=== PATIENT | male | born 1950 | race Caucasian/White ===

== ENCOUNTER 2016-03-27 05:57 | Day surgery (SDC) | payer MEDICARE ==
[~2016-03-27] VITALS: Ht 170.2 cm; Wt 86.4 kg
[2016-03-27] MEDS ORDERED: ZANTAC150 MG PO (06:45)
[2016-03-27] MEDS ORDERED: GLUCOPHAGE500 MG PO (06:46)
[2016-03-27] MEDS ORDERED: TORADOL10 MG PO (06:47)
[2016-03-27] MEDS ORDERED: MOBIC7.5 MG PO (06:47)
[2016-03-27] MEDS ORDERED: LIPITOR20 MG PO (06:47)
[2016-03-27] MEDS ORDERED: NEURONTIN600 MG PO (06:48)
[2016-03-27] MEDS ORDERED: COZAAR100 MG PO (06:48)
[2016-03-27] MEDS ORDERED: CENTRUM COMPLE1 EACH PO (06:48)
[2016-03-27 06:49] VITALS: BP 139/81; Ht 170.2 cm; Wt 86.4 kg
[2016-03-27 06:53] LABS: HEMATOCRIT 46.7 % (42.0-54.0); HEMOGLOBIN 16.5 g/dL (13.5-17.5); MCHC 35.3 g/dL (31.0-37.0); MCV 93.4 fL (80.0-100.0); MEAN PLATELET VOLUME 10.3 fL (7.4-10.4); RDW 12.8 % (11.5-14.5); WBC 8.8 10x3/uL (4.8-10.8)
[2016-03-27 06:59] LABS: ANION GAP 14.5 mmol/L (8-16); CARBON DIOXIDE 26.2 mmol/L (21.0-32.0); CREATININE - SERUM 1.1 mg/dL (0.6-1.3); POTASSIUM - SERUM 4.7 mmol/L (3.5-5.1)
--- NOTE | 2016-03-27 09:57 | NUR ---
0910-RECEIVED PT FROM GI AWAKE AND ALERT. DENIES ANY N/V PASSING GAS FULL IQUID TRAY GIVEN WILL CONTINUE TO MONITOR 0940-PT TOLERATED TRAY WELL DENIES ANY NEEDS OR CONCERNS FAMILY AT BEDSIDE WILL CONTINUE TO MONITOR
--- NOTE | 2016-03-27 10:29 | NUR ---
1010-PT DOING WELL, IV DICONTINUED WITH CATHETER INTACT. PT TO BATHROOM AND VOIDED, DENIES ANY NEEDS OR CONCERNS AT THIS TIME 1025-DISCHARGE INSTRUCTIONS GIVEN AND WENT OVER WITH PATIENT. PT STATES UNDERSTANDING AND DENIES ANY NEEDS OR CONCERNS AT THIS TIME. PT ESCORTED OUT VIA WHEELCHAIR IN STABLE CONDITION AND DRIVEN HOME BY
--- NOTE | 2016-04-07 10:18 | OP ---
PATIENT NAME: RUBINA DERAS MEDICAL RECORD: [id number] :50 LOCATION:D.OPS ADMISSION DATE: SURGEON: KENNEDY LEVI MD DATE OF OPERATION: 03/27/2016 PREOPERATIVE DIAGNOSIS: Screening colonoscopy. SURGEON: Kennedy Levi MD ANESTHESIA: TIVA per Dr. Gomes. REFERRING PHYSICIAN: Valentín Vega MD PREOPERATIVE NOTE: Mr. Deras is a 65-year-old healthy white male brought to the hospital today for screening colonoscopy, referred by Dr. Vega. Under TIVA, in lateral decubitus position, a digital rectal exam was performed. This was normal, no evidence of perianal sepsis or inflammation. No hemorrhoidal thrombosis. No masses. Prostate was minimally enlarged and without nodules. The Olympus colonoscope was introduced and advanced to the cecum with no difficulty and then slowly withdrawn. Withdrawal time was in excess of 10 minutes. No mucosal lesions were seen. The patient did have mild sigmoid diverticulosis, but no other lesions. The scope was retroflexed in the rectum and the anal canal examined from above and no other lesions seen. The scope was withdrawn and the patient was subsequently awakened and taken back to the outpatient department. He will be allowed to go home later today and resume his activities and diet and home medications. He will follow up with me just p.r.n. and I have recommended that he consider having another screening colonoscopy in about 5 years. TRANSINT:[id number] Voice Confirmation ID: [id number] DOCUMENT ID: [id number] KENNEDY LEVI MD at 1018 CC: VALENTÍN VEGA MD [id number] DICTATION DATE: 04/04/16 1618 FACILITY REHAB DIRECTOR: 04/05/16 0000 [facility] 03/27/16 [facility] [address] [place] [address]
== END 2016-03-27 10:25 | disposition home or self-care (01) ==
LOC: D.OPS 05:57
PROVIDERS: Anesthesiology
DX: Z12.11 Encounter for screening for malignant neoplasm of colon (principal); K57.30 Diverticulosis of large intestine without perforation or abscess without bleeding; N40.0 Benign prostatic hyperplasia without lower urinary tract symptoms

== ENCOUNTER 2018-03-02 18:05 | Emergency (ER) | payer MEDICARE ==
[~2018-03-02] VITALS: Ht 170.2 cm; Wt 86.4 kg
[~2018-03-02 18:05] MED LIST: CENTRUM COMPLE1 EACH PO; COZAAR100 MG PO; GLUCOPHAGE500 MG PO; LIPITOR20 MG PO; MOBIC7.5 MG PO; NEURONTIN600 MG PO; TORADOL10 MG PO; ZANTAC150 MG PO
[2018-03-02 18:08] VITALS: Ht 170.2 cm; Wt 86.4 kg
[2018-03-02 18:47] LABS: BASOPHILS 0.1 % (0-2); EOSINOPHILS 0.1 % (0-7); HEMATOCRIT 44.2 % (42.0-54.0); HEMOGLOBIN 15.7 g/dL (13.5-17.5); IMMATURE GRANULOCYTES 0.5 % (0-5); LYMPHOCYTES 8.9 % (15-50); MCH 33.4 pg (26.0-34.0); MCHC 35.5 g/dL (31.0-37.0); MEAN PLATELET VOLUME 10.5 fL (7.4-10.4); MONOCYTES 4.7 % (2-11); NEUTROPHILS 85.7 % (40-80); PLATELET COUNT 222 10x3/uL (130-400); RDW 13.2 % (11.5-14.5); WBC 16.2 10x3/uL (4.8-10.8)
[2018-03-02 19:04] LABS: APPEARANCE CLEAR (CLEAR); COLOR YELLOW (YELLOW); SPECIFIC GRAVITY 1.015 (1.005-1.020)
[2018-03-02 19:05] LABS: BILIRUBIN NEGATIVE (NEGATIVE); GLUCOSE 100 mg/dL (NEGATIVE); KETONE SMALL mg/dL (NEGATIVE); NITRITE NEGATIVE (NEGATIVE); PROTEIN NEGATIVE (NEGATIVE); RED CELLS - URINE 0-5 /hpf (0-5); UROBILINOGEN NORMAL (NORMAL); WHITE CELLS - URINE 0-5 /hpf (0-5)
[2018-03-02 19:06] LABS: ALBUMIN 3.9 g/dL (3.4-5.0); ANION GAP 15.6 mmol/L (8-16); BILIRUBIN - TOTAL 0.92 mg/dL (0.2-1.3); CALCIUM 8.6 mg/dL (8.5-10.1); CARBON DIOXIDE 27.5 mmol/L (21.0-32.0); CREATININE - SERUM 1.4 mg/dL (0.6-1.3); POTASSIUM - SERUM 4.1 mmol/L (3.5-5.1); PROTEIN - SERUM 7.9 g/dL (6.4-8.2)
[2018-03-02] MEDS ORDERED: FLOMAX0.4 MG PO (21:05)
[2018-03-02] MEDS ORDERED: TORADOL10 MG PO (21:05)
[2018-03-02] MEDS ORDERED: COMPAZINE5 MG PO (21:05)
[2018-03-02] MEDS ORDERED: CIPRO500 MG PO (21:05)
[2018-03-02 21:28] VITALS: BP 164/97
== END 2018-03-02 21:29 | disposition home or self-care (01) ==
LOC: D.ER 18:05
PROVIDERS: Emergency Medicine
DX: N12 Tubulo-interstitial nephritis, not specified as acute or chronic (principal); N13.30 Unspecified hydronephrosis; N20.0 Calculus of kidney; E11.9 Type 2 diabetes mellitus without complications; I10 Essential (primary) hypertension

== ENCOUNTER → 2019-10-27 08:12 | Outpatient (CLI) | payer MEDICARE ==
[2018-03-02 18:08] VITALS: BMI 29.8
[~2019-10-27 08:12] MED LIST changes: +CIPRO500 MG PO; +COMPAZINE5 MG PO; +FLOMAX0.4 MG PO
== END | disposition home or self-care (01) ==
LOC: D.HCCARDIO 08:12
PROVIDERS: ATTEND Internal Medicine Cardiovascular Disease
DX: R94.31 Abnormal electrocardiogram [ECG] [EKG] (principal)

== ENCOUNTER 2019-11-17 10:35 | Day surgery (SDC) | payer MEDICARE ==
[~2019-11-17] VITALS: Ht 170.2 cm; Wt 86.0 kg
--- NOTE | ~2019-11-17 | HEMODYNAMI ---
PATIENT:RUBINA SANDERS MEDICAL RECORD: [id number] : 50 LOCATION:DROMEL ADMISSION DATE: 11/17/19 Generatedon:11/17/201913:46 Patient name: RUBINA SANDERS Patient #: [id number] SSN: [id number] : 1950 Date of study: 11/17/2019 Page: Of Hemodynamic Procedure Report Patient Data Patient Demographics Procedure consent was obtained First Name: RUBINA Gender: Male Last Name: MARILYN : 1950 Patient #: [id number] Age: 69 year(s) Race: SSN: [id number] Additional ID: [id number] Contact details [address]: [address] [place] [address] State: [place] City: [place] Zip code: [address] Past Medical History Allergies: No known allergies Admission Admission Data Admission Date: 11/17/2019 Admission Time: 10:35 Lab Results Lab Result Date: 11/17/2019 Lab Result Time: 0:00 Biochemistry Name Units Result Min Max BUN mg/dl 20 --(----)*- 7 18 Creatinine mg/dl 1.3 --(---*)-- 0.6 1.3 eGFR ml/min 58 *-(----)-- 90 120 NONAFRICAN CBC Name Units Result Min Max Hematocrit % 43 --(*---)-- 42 54 Hemoglobin g/dl 15.4 --(-*--)-- 13.5 17.5 Procedure Procedure Types Cath Procedure Diagnostic Procedure C [facility] w/Coronaries Sedation Charges Moderate Sedation up to 15 minutes Procedure Description Procedure Date Procedure Date: 11/17/2019 Procedure Start Time: 13:28 Procedure End Time: 13:45 Procedure Staff Name Function Kody Fletcher MD Performing Physician Inga Veloz RT Monitor Margaret Harris RT Scrub Camron Forrest RN Nurse Brit Dawson RN Nurse Indication Abnormal ECG Procedure Data Cath Procedure Fluoroscopy Diagnostic fluoroscopy Total fluoroscopy Time: 5.2 time: 5.2 min min Diagnostic fluoroscopy Total fluoroscopy dose: 781 dose: 781 mGy mGy Contrast Material Contrast Material Type Amount (ml) Isovue 300 67 Entry Location Entry Primary Successful Side Size Upsize Upsize Entry Closure Min ccessful Closure Location (Fr) 1 (Fr) 2 (Fr) Remarks Device Remarks Radial Right 6 Fr Mechanical artery Short Compression Estimated blood loss: 5 ml Diagnostic catheters Device Type Used For End Catheter Placement DIAGNOSTIC Artie 110cm Procedure 5Fr catheter ([id number]) DIAGNOSTIC Dowagiac 110cm 5 Procedure Fr catheter ([id number]) Procedure Complications No complications Procedure Medications Medication Administration Route Dosage 0.9% NaCl I.V. 100 ml/hr Oxygen etCO2 Nasal cannula 2 l/min Heparin Flush Bag added to field 2 bags (1000units/500ml NS) Lidocaine 2% added to field 20 Radial Cocktail added to field 1 syringe (Verapamil 2mg/Nitro 400mcg/Heparin 1500units) Versed I.V. 2 mg Fentanyl I.V. 50 mcg Fentanyl I.V. 50 mcg Versed I.V. 1 mg Radial Cocktail I.A. 1 syringe (Verapamil 2mg/Nitro 400mcg/Heparin 1500units) Hemodynamics Rest HGB: 15.4 (g/dl) Heart Rate: 65 (bpm) Pressure Samples Time Site Value (mmHg) Purpose Heart Use Rate(bpm) 13:32 LV 120/-20,-2 Snapshot 82 Gradients Valve Time Site Site Mean SEP/DFP Peak To Heart Use 1 2 (mmHg) (sec/min) Peak Rate (mmHg) (bpm) Aortic 13:33 LV AO 81 Snapshots Pre Cath Intra NCS Post Cath Vital Signs Time Heart Resp SPO2 etCO2 NIBP (mmHg) Rhythm Pain Sedation Rate (ipm) (%) (mmHg) Status Level (bpm) 13:13:01 62 19 100 38.5 155/83(135) NSR 0 (11) 10(A) , No pain 13:17:23 62 13 100 36.9 157/84(128) NSR 0 (11) 10(A) , No pain 13:21:39 75 13 98 41.5 147/86(113) NSR 0 (11) 10(A) , No pain 13:25:49 77 11 98 42.2 139/86(119) NSR 0 (11) 10(A) , No pain 13:30:03 81 12 98 22.6 128/83(120) NSR 0 (11) 10(A) , No pain 13:34:13 89 10 95 38.4 107/80(99) NSR 0 (11) 9(A) , No pain 13:39:04 83 10 96 21.1 120/80(104) NSR 0 (11) 9(A) , No pain 13:43:11 84 12 98 37.7 132/88(106) NSR 0 (11) 10(A) , No pain Medications Time Medication Route Dose Verified Delivered Reason Notes Effectiveness by by 13:17:20 0.9% NaCl I.V. 100 Camron Camron Per ml/hr Adriane Forrest physician RN RN 13:17:30 Oxygen etCO2 2 l/min Camron Camron for low 02 Nasal Lorigan Lorigan sats cannula RN RN 13:17:41 Heparin Flush added 2 bags Camron Camron used for Bag to Lorphu Forrest procedure (1000units/500ml field GENAO RN NS) 13:17:51 Lidocaine 2% added 20ml Camron Camron for local to vial Lorigan Lorigan anesthetic field GENAO RN 13:18:01 Radial Cocktail added 1 Camron Camron used for (Verapamil to syringe Lorigan Lorigan procedure 2mg/Nitro field GENAO RN 400mcg/Heparin 1500units) 13:23:46 Versed I.V. 2 mg Camron Camron for sedation Adriane Forrest RN RN 13:23:56 Fentanyl I.V. 50 mcg Camron Camron for sedation Adriane Forrest RN RN 13:28:19 Fentanyl I.V. 50 mcg Camron Camron for sedation Adriane Forrest RN RN 13:28:29 Versed I.V. 1 mg Camron Camron for sedation Adriane Forrest RN RN 13:29:53 Radial Cocktail I.A. 1 Camron Kody for (Verapamil syringe Adriane Fletcher MD vasodilation 2mg/Nitro RN 400mcg/Heparin 1500units) Procedure Log Time Note 12:47:12 Informed consent obtained and on chart 12:52:55 Indication : Abnormal ECG 12:53:03 Procedure Status Elective Heart Cath (OP). 12:53:06 Time tracking: Regular hours (M-F 7:00 - 5:00) 12:53:29 Patient allergic to No known allergies 12:55:13 Margaret Steven RT(R) sent for patient. Start room use. 12:55:27 Plan of Care:Hemodynamics will remain stable., Cardiac rhythm will remain stable., Comfort level will be maintained., Respiratory function will remain adequate., Patient/ family verbilizes understanding of procedure., Procedure tolerated without complication., Recovers from procedure without complications.. 12:57:04 Stress Test: yes; abnormal inferior 12::36 Lab Result : BUN 20 mg/dl ::36 Lab Result : Creatinine 1.3 mg/dl 12::36 Lab Result : eGFR NONAFRICAN 58 ml/min 12::36 Lab Result : Hemoglobin 15.4 g/dl 12::36 Lab Result : Hematocrit 43 % 12:57:43 Lab results completed and on chart. 13:00:39 Patient received from Pre/Post Procedure Room to CCL 1 Alert and oriented. Tansferred to table in Supine position. 13:00:41 Warm blankets applied, and chad hugger turned on for patient comfort. 13:00:42 Correct patient and procedure confirmed by team. 13:00:43 ECG and BP/O2 sat monitors applied to patient. 13:11:49 Vital chart was started 13:11:50 Baseline sample Acquired. 13:11:55 Rhythm: sinus rhythm 13:11:58 Full Disclosure recording started 13:11:59 - 13:12:06 H&P Date Dictated: 11/17/2019 H&P Addendum completed by physician on day of procedure. (MUST COMPLETE FOR ALL OUTPATIENTS), New H&P dictated by physician.. 13:12:08 Pre-procedure instructions explained to patient. 13:12:09 Pre-op teaching completed and patient verbalized understanding. 13:12:11 Family in patients room. 13:12:14 Patient NPO since Midnight. 13:12:22 Is the patient allergic to Iodine/contrast media? No. 13:12:26 Was the patient premedicated? Yes 13:12:29 Is patient on blood thinner?No 13:12:32 Patient diabetic? Yes. 13:12:35 If diabetic: On Metformin? Yes 13:12:41 If on Metformin: Last Dose? 11/15/2019 13:12:45 ----Pre-sedation anethsthesia assessment.---- 13:12:49 Previous problem with sedation/anesthesia? No ? 13:12:52 Snore? Yes 13:12:55 Sleep apnea? No 13:12:58 Deviated septum? No 13:13:01 Opens mouth fully? Yes 13:13:04 Sticks out tongue? Yes 13:13:08 Airway obstruction? No ? 13:13:12 Dentures? No ? 13:13:21 Pre procedure: right dorsailis pedis pulse 2+ Normal; easily identifiable; not easily obliterated 13:13:33 IV patent on arrival in left wrist with 0.9% NaCl at KVO. 13:13:40 Right Radial & Right Groin area was prepped with chlora-prep and draped in sterile fashion 13:13:43 Alarms reviewed by R. N. 13:13:43 Sharps counted by scrub and verified by R.N. 13:13:53 Use device set Radial Dx or PCI 13:13:55 ACIST Syringe (69942) opened to sterile field. 13:13:56 Medline Cath Pack ([id number]) opened to sterile field. 13:13:57 Bag Decanter (2002S) opened to sterile field. 13:13:57 ACIST Hand Control (78360) opened to sterile field. 13:13:58 ACIST Manifold (54000) opened to sterile field. 13:13:59 MBrace Wrist Support ([id number]) opened to sterile field. 13:14:00 NEEDLE Cook 21G 4cm Radial (Q03386) opened to sterile field. 13:14:02 EMERALD Guide Wire (630-214) opened to sterile field. 13:14:02 SHEATH 6FR RAIN (3183544) opened to sterile field. 13:17:20 0.9% NaCl 100 ml/hr I.V. was administered by Camron Forrest RN; Per physician; Verbal order read back and verified. 13:17:30 Oxygen 2 l/min etCO2 Nasal cannula was administered by Camron Forrest RN; for low 02 sats; Verbal order read back and verified. 13:17:41 Heparin Flush Bag (1000units/500ml NS) 2 bags added to field was administered by Camron Forrest RN; used for procedure; Verbal order read back and verified. 13:17:51 Lidocaine 2% 20ml vial added to field was administered by Camron Forrest RN; for local anesthetic; Verbal order read back and verified. 13:18:01 Radial Cocktail (Verapamil 2mg/Nitro 400mcg/Heparin 1500units) 1 syring e added to field was administered by Camron Forrest RN; used for procedure; Verbal order read back and verified. 13:20:00 Risk of Mortality: 0.1 13:20:04 Risk of blood transfusion: 0.4 13:20:10 Risk of CURT: 0.4 13:20:17 Physician arrived 13:20:18 --------ALL STOP TIME OUT------ 13:20:19 Final Timeout: patient, procedure, and site verified with staff and physician. All members of the team are in agreement. 13:20:22 Right Radial & Right Groin site verified by team. 13:20:27 Fire Safety Assessment: A--An alcohol-based skin anteseptic being used preoperatively., C--Open oxygen or nitrous oxide is being used., D--An ESU, laser, or fiber-optic light is being used. 13:20:31 Physical assessment completed. ASA score P 2 - A patient with mild systemic disease as per Kody Fletcher MD. 13:20:38 3a) 45-59 Moderately reduced kidney function. 13:20:43 Maximum allowable contrast dose (3.7 X eGFR X 0.75)161 ml. 13:20:49 Sedation plan: IV Moderate Sedation Medication:Versed, Fentanyl 13:22:34 Zero performed for pressure channel P1 13:23:46 Versed 2 mg I.V. was administered by Camron Forrest RN; for sedation; Verbal order read back and verified. 13:23:56 Fentanyl 50 mcg I.V. was administered by Camron Forrest RN; for sedation; Verbal order read back and verified. 13:27:32 Procedure started. 13:28:14 Local anesthetic to right radial artery with Lidocaine 2% by Kody Fletcher MD.INITIAL ACCESS ONLY 13:28:19 Fentanyl 50 mcg I.V. was administered by Camron Forrest RN; for sedation; Verbal order read back and verified. 13:28:29 Versed 1 mg I.V. was administered by Camron Forrest RN; for sedation; Verbal order read back and verified. 13:29:18 A 6 Fr Short sheath was inserted into the Right Radial artery 13:29:53 Radial Cocktail (Verapamil 2mg/Nitro 400mcg/Heparin 1500units) 1 syring e I.A. was administered by Kody Fletcher MD; for vasodilation; Verbal order read back and verified. 13:29:55 A DIAGNOSTIC Artie 110cm 5Fr catheter ([id number]) was advanced over the wire and used for Procedure. 13:31:11 Injector settings: Ml/sec: 5, Volume: 15, 13:32:15 LV gram done using MENDEZ 13:32:52 EF : 55 % 13:33:08 LV hemodynamics recorded. 13:33:38 RCA angiography performed. 13:33:49 Injector settings: Ml/sec: 3, Volume: 6, 13:34:32 Catheter exchanged over wire. 13:35:34 A DIAGNOSTIC Dowagiac 110cm 5 Fr catheter (931948) was advanced over the wire and used for Procedure. 13:37:27 LCA angiography performed. 13:37:37 Injector settings: Ml/sec: 3, Volume: 6, 13:41:07 Catheter removed. 13:41:14 ZEPHYR REGULAR TR BAND (291847) opened to sterile field. 13:41:55 Sheath removed intact; hemostasis achieved with Mechanical Compression to the Right Radial artery. 13:41:58 Procedure ended.(Physican Out) 13:42:05 Contrast amount:Isovue 300 67ml. 13:42:11 Fluoroscopy time 05.20 minutes. 13:42:19 Fluoroscopy dose: 781 mGy 13:42:19 Flurop Dose total: 781 13:42:32 Dose Area Product 98977 mGy/cm. 13:42:35 Maximum allowable dose exceeded? No. 13:42:37 Sharps counted by scrub and verified by R.N. 13:42:41 Todd band inflated with 10cc of air. 13:42:51 Post right radial artery:stable 13:42:56 Post-procedure physical assessment completed. ASA score P 2 - A patient with mild systemic disease as per Kody Fletcher MD. 13:43:01 Post procedure rhythm: unchanged. 13:43:05 Estimated blood loss: 5 ml 13:43:07 Post procedure instruction explained to patient.Patient verbalizes understanding. 13:43:08 Patient needs reinforcement of post procedure teaching. 13:43:50 Procedure type changed to Cath procedure, Diagnostic procedure, LHC, C w/Coronaries, Sedation Charges, Moderate Sedation up to 15 minutes 13:43:52 Procedure and supply charges have been captured, reviewed, submitted an d are correct. 13:44:35 Procedure Complication : No complications 13:44:39 Vital chart was stopped 13:44:41 [facility] Findings: MVD- CABG consult 13:45:08 See physician's report for complete and final results. 13:45:12 Report given to Pre/Post Procedure Room. 13:45:18 Patient transfered to Pre/Post Procedure Room with Stretcher. 13:45:22 Procedure ended. 13:45:22 Full Disclosure recording stopped 13:45:25 End room use (Document Last) Device Usage Item Name Manufacture Quantity Catalog Hospital Part Current Minima l Lot# / Number Charge Number Stock Stock Serial# Code ACIST Acist 1 93487 136868 076034 767234 20 Syringe Medical (17639) Systems Inc Medline Medline 1 [id number] 777039 47650 098091 5 Cath Pack ([id number]) Bag Microtek 1 622753 62034 645203 5 Decanter Medical Inc. () ACIST Hand Acist 1 19054 996348 956000 467745 5 Control Medical (82173) Systems Inc ACIST Acist 1 48820 497748 471045 586498 5 Manifold Medical (17498) Systems Inc MBrace Advanced 1 140-0250-00 644812 93764 614071 5 Wrist Vascular Support Dynamics ([id number]) NEEDLE Cook Cook Medical 1 H29956 020141 626493 127074 5 21G 4cm Radial (B08471) EMERALD Cardinal 1 502-455 812016 913284 122031 5 Guide Wire [facility] (721-810) SHEATH 6FR Cardinal 1 [id number] 633091 3557630 837413 [address] [facility] (4394182) DIAGNOSTIC Terumo 1 40-5023 999645 351748 270432 5 Artie 110cm 5Fr catheter (300540) DIAGNOSTIC Terumo 1 40-2761 267737 727872 609866 5 Dowagiac 110cm 5 Fr catheter (252104) ZEPHYR Cardinal 1 608710 030793 0170631 290573 5 REGULAR TR Health BAND (561005) Signature Audit [place] Stage Time Signature Unsigned Intra-Procedure 11/17/2019 Inga 1:45:48 PM Magdiel RT(R) (CV) Intra-Procedure 11/17/2019 Camron 1:46:17 PM Adriane GENAO Intra-Procedure 11/17/2019 Kody Fletcher MD 1:46:57 PM [facility] [address] [place] [id number]
[2019-11-17] MEDS ORDERED: GLUCOTROL 5 MG T5 MG PO (10:48)
[2019-11-17] MEDS ORDERED: NORVASC10 MG PO (10:49)
[2019-11-17] MEDS ORDERED: HYDROCHLOROTH12.5 M1 PO (10:49)
[2019-11-17] MEDS ORDERED: OMEPRAZOLE40 MG PO (10:50)
[2019-11-17] MEDS ORDERED: GLUCOPHAGE1000 MG PO (10:53)
[2019-11-17] MEDS ORDERED: BAYER CHEWABLE81 MG PO (10:55)
[2019-11-17 11:08] VITALS: BP 175/102; Ht 170.2 cm; Wt 86.0 kg
[2019-11-17 11:16] LABS: BASOPHILS 0.2 % (0-2); EOSINOPHILS 1.3 % (0-7); HEMOGLOBIN 15.4 g/dL (13.5-17.5); IMMATURE GRANULOCYTES 0.2 % (0-5); LYMPHOCYTES 24.2 % (15-50); MCH 33.3 pg (26.0-34.0); MCHC 35.8 g/dL (31.0-37.0); MCV 92.9 fL (80.0-100.0); MEAN PLATELET VOLUME 10.3 fL (7.4-10.4); MONOCYTES 7.2 % (2-11); NEUTROPHILS 66.9 % (40-80); PLATELET COUNT 261 10x3/uL (130-400); RBC 4.63 10x6/uL (4.20-6.10); RDW 12.9 % (11.5-14.5); WBC 9.9 10x3/uL (4.8-10.8)
[2019-11-17 11:31] LABS: ANION GAP 11.7 mmol/L (8-16); CALCIUM 9.2 mg/dL (8.5-10.1); CARBON DIOXIDE 28.1 mmol/L (21.0-32.0); CHOL - HDL RATIO 5.2 ratio (2.3-4.9); CREATININE - SERUM 1.3 mg/dL (0.6-1.3); LDL-HDL RATIO 3.5 ratio (1.5-3.5); POTASSIUM - SERUM 3.8 mmol/L (3.5-5.1)
--- NOTE | 2019-11-17 13:50 | NUR ---
PT REC'D TO ROOM 4 VIA STRETCHER FROM NATURAL RESOURCE TECHNICIAN. MONITORS ESTAB. AT BS. SEE COMPARISON SHOPPER. ALARMS ON AND C/L IN REACH.
--- NOTE | 2019-11-17 14:05 | NUR ---
R WRIST SITE C/D/I, NO S/S BLEEDING OR HEMATOMA. R ARM/HAND WARM WITH PALP PULSES AND BRISK CAP REFILL. VSS. PT DENIES PAIN OR NEEDS. VSS. ALARMS ON AND C/L IN REACH.
--- NOTE | 2019-11-17 14:15 | NUR ---
R WRIST SITE C/D/I, NO S/S BLEEDING OR HEMATOMA. R ARM/HAND WARM WITH PALP PULSES AND BRISK CAP REFILL. VSS. PT GIVEN WATER PER REQUEST. ALARMS ON AND C/L IN REACH.
--- NOTE | 2019-11-17 14:25 | NUR ---
DR. KAMARA AT TO TALK WITH PT AND .
--- NOTE | 2019-11-17 14:35 | NUR ---
PT RESTING QUIETLY, R WRIST SITE C/D/I, NO S/S BLEEDING OR HEMATOMA. R ARM/HAND WARM WITH PALP PULSES. C/L IN REACH.
--- NOTE | 2019-11-17 15:00 | NUR ---
3 CC AIR REMOVED FROM Z BAND, NO S/S BLEEDING OR SWELLING. PULSES PALP. VSS. AT BS. C/L IN REACH.
--- NOTE | 2019-11-17 15:15 | NUR ---
TOTAL 5 CC AIR REMOVED FROM Z BAND, NO S/S BLEEDING OR HEMATOMA. PULSES PALP. VSS. PT REFUSED ANYTHING TO EAT AT THIS TIME.
--- NOTE | 2019-11-17 15:30 | NUR ---
ALL AIR REMOVED FROM Z BAND, NO S/S BLEEDING OR SWELLING, PULSES PALP. WILL CONT CLOSE MONITORING. ALARMS ON AND C/L IN REACH.
--- NOTE | 2019-11-17 15:59 | NUR ---
DR. DO'S NURSE HERE TO TALK WITH PT AND HIS RE: F/U APPT THIS WED FOR SURGERY CONSULT.
--- NOTE | 2019-11-17 16:10 | NUR ---
R WRIST SITE C/D/I, NO S/S BLEEDING. Z BAND OFF AND DSG APPLIED, ARM BOARD IN PLACE. VSS.
--- NOTE | 2019-11-17 16:15 | NUR ---
ALL DISCHARGE INSTRUCTIONS REVIEWED WITH PT AND HIS , INCLUDING RESTRICTIONS, MEDS, AND F\U APPT WITH DR. DO. BOTH VERBALIZE UNDERSTANDING.
--- NOTE | 2019-11-17 16:18 | NUR ---
PIV D/C'D INTAC, DSG APPLIED. PT ALLOWED UP TO GET DRESSED AND GO TO BR INDEPENDENTLY.
--- NOTE | 2019-11-17 16:25 | NUR ---
PT D/C'D TO PRIVATE VEHICLE WITH ALL PAPER WORK AND BELONGINGS.
== END 2019-11-17 16:25 | disposition home or self-care (01) ==
LOC: D.CATH 10:35
PROVIDERS: ATTEND Internal Medicine Cardiovascular Disease
DX: I20.9 Angina pectoris, unspecified (principal); R94.39 Abnormal result of other cardiovascular function study; I10 Essential (primary) hypertension; E78.5 Hyperlipidemia, unspecified; R94.31 Abnormal electrocardiogram [ECG] [EKG]

== ENCOUNTER 2019-11-20 11:36 | Inpatient (IN) | payer MEDICARE ==
[~2019-11-20] VITALS: Ht 170.2 cm; Wt 86.4 kg
[~2019-11-20 11:36] MED LIST changes: +BAYER CHEWABLE81 MG PO; +GLUCOPHAGE1000 MG PO; +GLUCOTROL 5 MG T5 MG PO; +HYDROCHLOROTH12.5 M1 PO; +NORVASC10 MG PO; +OMEPRAZOLE40 MG PO
[2019-11-24 16:24] LABS: BASOPHILS 0.1 % (0-2); EOSINOPHILS 1.2 % (0-7); HEMOGLOBIN 14.6 g/dL (13.5-17.5); IMMATURE GRANULOCYTES 0.4 % (0-5); LYMPHOCYTES 29.7 % (15-50); MCH 32.8 pg (26.0-34.0); MCHC 34.8 g/dL (31.0-37.0); MCV 94.4 fL (80.0-100.0); MEAN PLATELET VOLUME 10.2 fL (7.4-10.4); MONOCYTES 7.2 % (2-11); NEUTROPHILS 61.4 % (40-80); PLATELET COUNT 266 10x3/uL (130-400); RBC 4.45 10x6/uL (4.20-6.10); RDW 13.2 % (11.5-14.5); WBC 8.3 10x3/uL (4.8-10.8)
[2019-11-24 16:28] LABS: BILIRUBIN NEGATIVE (NEGATIVE); KETONE NEGATIVE (NEGATIVE); NITRITE NEGATIVE (NEGATIVE); UROBILINOGEN NORMAL mg/dL (< 2)
[2019-11-24 16:41] LABS: APTT 29.7 SECONDS (22.8-39.4); INR 0.99 (0.85-1.17)
[2019-11-24 17:30] LABS: ALBUMIN 3.9 g/dL (3.4-5.0); ANION GAP 10.8 mmol/L (8-16); BILIRUBIN - TOTAL 0.77 mg/dL (0.2-1.3); CALCIUM 8.8 mg/dL (8.5-10.1); CARBON DIOXIDE 29.8 mmol/L (21.0-32.0); CREATININE - SERUM 1.3 mg/dL (0.6-1.3); PHOSPHOROUS 3.9 mg/dL (2.5-4.9); POTASSIUM - SERUM 3.6 mmol/L (3.5-5.1); PROTEIN - SERUM 8.1 g/dL (6.4-8.2); T4 THYROXIN - FREE 1.05 ng/dL (0.76-1.46); THYROID STIMULATING HORMONE 1.47 uIU/mL (0.36-3.74); URIC ACID 4.5 mg/dL (2.6-7.2)
[2019-11-28] VITALS (31 sets, daily range): BP systolic 73–151; BP diastolic 42–71; BMI 29.8; BMI 33.0
--- NOTE | 2019-11-28 18:16 | NUR ---
1339 PT ARRIVED TO ROOM, HEMODYNAMICALLY STABLE AND INTUBATED. 1553 C-PAP STARTED. 1700 DR DO NOTIFIED OF RESULTS OF ABG AND ORDERS TO EXTUBATE RECIEVED. 1750 DR DO NOTIFIED OF PT UNCONTROLLED PAIN, ORDER FOR ONE TIME DOES OF 15MG TORADOL IVP NOW, THIS WAS COMPLETED. 181 PT NOTIFIED THIS NURSE THAT PAIN WAS ALSO BEING CONTRIBUTED TO BY ROSAS CATHETER. PLACEMENT WAS CHECKED AFTER CLEANSING, PT STATES THAT IT HAS RELEAVED SOME OF HIS DISCOMFORT AFTER ADJUSTMENTS MADE. WILL CONTINUE PLAN OF CARE.
--- NOTE | 2019-11-28 19:30 | NUR ---
REPORT REC'D AND CARE ASSUMED, REC'D PT AWAKE, ALERT, ORIENTED X 4, O2 @ 4 LITERS VIA NC, RIJ CVL WITH PLASMALYTE @ 30 AND ZINACEF @ 12.8CC/HR, MIDSTERNAL DRSG CDI, SUBSTERNAL CT X 1 TO 20CM H20 SUCTION NO AIR LEAK NOTED, DRSG CDI, SANGUINOUS DRAINAGE PRESENT IN TUBING, ROSAS PATENT DRAINING CLEAR YELLOW URINE, RIGHT LEG WITH COBAN DRSG CDI, LEFT SUBSTERNAL RACHEL DRAIN COMPRESSED WITH SANGUINOUS DRAINAGE, PPP, COREY AND SCD TO LEFT LEG, PPP, SR UP X 2, BED IN LOW POSITION, VISIBLE TO NURSES DESK.
--- NOTE | 2019-11-28 19:50 | NUR ---
SPOKE WITH AFTER VERIFYING PASS CODE, UPDATE PROVIDED AND QUESTIONS ANSWERED.
[2019-11-29] VITALS (53 sets, daily range): BP systolic 91–135; BP diastolic 50–86; Ht 170.2 cm; Wt 86.4 kg
[2019-11-29 06:27] LABS: HEMATOCRIT 31.7 % (42.0-54.0); HEMOGLOBIN 10.7 g/dL (13.5-17.5); MCH 32.2 pg (26.0-34.0); MCHC 33.8 g/dL (31.0-37.0); MCV 95.5 fL (80.0-100.0); MEAN PLATELET VOLUME 10.1 fL (7.4-10.4); RBC 3.32 10x6/uL (4.20-6.10); RDW 13.7 % (11.5-14.5)
[2019-11-29 06:52] LABS: ALBUMIN 2.8 g/dL (3.4-5.0); ANION GAP 13.1 mmol/L (8-16); BILIRUBIN - TOTAL 0.61 mg/dL (0.2-1.3); CARBON DIOXIDE 27.4 mmol/L (21.0-32.0); CREATININE - SERUM 1.1 mg/dL (0.6-1.3); POTASSIUM - SERUM 3.5 mmol/L (3.5-5.1); PROTEIN - SERUM 5.6 g/dL (6.4-8.2)
[2019-11-29 06:57] LABS: CALCIUM 6.9 mg/dL (8.5-10.1)
--- NOTE | 2019-11-29 19:20 | NUR ---
REPORT REC'D AND CARE ASSUMED, REC'D PT SITTING UP IN BED WATCHING TV, BREATHING TX IN PROGRESS, O2 VIA 10 LITER HIGH FLOW, PULSE OX 95% AT THIS TIME, PT DENIES PAIN, MIDSTERNAL DRSG CDI, RIJ CVL, DRSG CDI, SALINE LOCKED, CT TO 20CM H2O SUCTION, NO AIR LEAK NOTED, SEROSANGUINOUS DRAINAGE PRESENT IN TUBING, PT AWAKE, ALERT, AND ORIENTED X 4, DENIES NEEDS, RIGHT LEG INICISONS CDI, WELL APPROXIMATED, BED IN LOW POSITION, CALL LIGHT IN REACH.
--- NOTE | 2019-11-29 19:55 | NUR ---
PT COMPLAINS OF INCISIONAL DISCOMFORT, PERCOCET 10 GIVEN PO AT THIS TIME, WILL MONITOR CLOSELY FOR CHANGES.
--- NOTE | 2019-11-29 22:30 | NUR ---
PT ATTEMPTING TO GET OOB, STATES "I NEED TO GO TO THE BATHROOM" PROVIDED URINAL AT THIS TIME, LINES STRAIGHTENED AND PT STOOD AT BS TO VOID 275CC CONCENTRATED URINE, PT ASSISTED BACK TO BED AND REPOSITIONED UP FOR COMFORT, CALL LIGHT IN REACH, BED IN LOW POSITION, CALL LIGHT IN REACH.
--- NOTE | 2019-11-29 23:10 | NUR ---
PT'S O2 SAT DECREASED TO 85%, HOB ELEVATED AND DEEP BREATHING AND COUGHING DONE, O2 SAT CONTINUES TO DROP, RT NOTIFIED AND BIPAP PLACED AT BS, BIPAP @ 45% INITIATED, WILL MONITOR FOR CHANGES.
--- NOTE | 2019-11-29 23:30 | NUR ---
PT RESTING EYES CLOSED, RESP EVEN AND UNLABORED ON BIPAP, CM-ST @ 100, BP STABLE, SR UP X 2, BED ALARM ON, CALL LIGHT IN REACH.
[2019-11-30] VITALS (23 sets, daily range): BP systolic 111–148; BP diastolic 60–94
--- NOTE | 2019-11-30 01:38 | NUR ---
PT REMOVED FROM BIPAP FOR BREAK, ICE WATER PROVIDED, TORADOL 15MG GIVEN SLOW IVP FOR COMPLAINTS OF PAIN, RATING "6" on 0-10 PAIN SCALE
--- NOTE | 2019-11-30 02:15 | NUR ---
O2 SAT DECREASED TO 85%, BIPAP MASK PUT BACK ON.
[2019-11-30 06:53] LABS: HEMATOCRIT 31.6 % (42.0-54.0); HEMOGLOBIN 10.6 g/dL (13.5-17.5); MCH 32.4 pg (26.0-34.0); MCHC 33.5 g/dL (31.0-37.0); MCV 96.6 fL (80.0-100.0); MEAN PLATELET VOLUME 10.2 fL (7.4-10.4); RBC 3.27 10x6/uL (4.20-6.10); RDW 14.1 % (11.5-14.5); WBC 18.7 10x3/uL (4.8-10.8)
[2019-11-30 07:13] LABS: ALBUMIN 2.9 g/dL (3.4-5.0); ANION GAP 12.6 mmol/L (8-16); BILIRUBIN - TOTAL 1.25 mg/dL (0.2-1.3); CALCIUM 7.6 mg/dL (8.5-10.1); CARBON DIOXIDE 26.9 mmol/L (21.0-32.0); CREATININE - SERUM 1.1 mg/dL (0.6-1.3); POTASSIUM - SERUM 3.5 mmol/L (3.5-5.1); PROTEIN - SERUM 6.2 g/dL (6.4-8.2)
[2019-12-01] VITALS (24 sets, daily range): BP systolic 113–143; BP diastolic 67–85
[2019-12-01 00:51] LABS: POTASSIUM - SERUM 2.9 mmol/L (3.5-5.1)
--- NOTE | 2019-12-01 01:01 | NUR ---
PT UP TO BATHROOM, HEART RATE INCREASED TO 160 BPM ON MONITORS, ASSISTED PT BACK INTO BED, EKG DONE AND LABS DRAWN AT THIS TIME. CALLED DR ALVAREZ WITH LAB RESULTS AND EKG, REC'D NEW ORDERS TO INFUSE BOLUS DOSE OF AMIO THEN START DRIP AT 1MG/MIN FOR 6HOURS, THEN DECREASE TO 0.5 AFTER, GIVE ANOTHER BOLUS DOSE OF AMIO IN 30 MIN IF NO CHANGE. INFUSING POTASSIUM PER PROTOCOL AT THIS TIME WELL FIRST LOADING DOSE OF AMIO. PT AWAKE AND ALERT, BP 130/70. WILL CONTINUE TO OBSERVE.
[2019-12-01 05:54] LABS: HEMATOCRIT 30.6 % (42.0-54.0); HEMOGLOBIN 10.3 g/dL (13.5-17.5); MCH 32.2 pg (26.0-34.0); MCHC 33.7 g/dL (31.0-37.0); MCV 95.6 fL (80.0-100.0); MEAN PLATELET VOLUME 10.2 fL (7.4-10.4); RBC 3.2 10x6/uL (4.20-6.10); RDW 13.8 % (11.5-14.5)
[2019-12-01 06:01] LABS: WBC 12.5 10x3/uL (4.8-10.8)
[2019-12-01 06:21] LABS: ALBUMIN 2.7 g/dL (3.4-5.0); ANION GAP 16.8 mmol/L (8-16); BILIRUBIN - TOTAL 0.79 mg/dL (0.2-1.3); CALCIUM 7.7 mg/dL (8.5-10.1); CARBON DIOXIDE 24.6 mmol/L (21.0-32.0); CREATININE - SERUM 1.2 mg/dL (0.6-1.3); PROTEIN - SERUM 6.3 g/dL (6.4-8.2)
[2019-12-01 06:22] LABS: POTASSIUM - SERUM 3.4 mmol/L (3.5-5.1)
--- NOTE | 2019-12-01 11:16 | NUR ---
Nutrition Follow-up: POD 3 CABG. Pt reports appetite improving somewhat. C/o mild nausea without vomiting this AM and diarrhea last night. Denies chewing/swallowing difficulties. Agreed to try nutrition supplement today. Diet: Diabetic PO intake: 35% avg x 3 meals yesterday Wt: 209# (11/30) Labs noted: K+ 3.4, Glu 255, Ca 7.7, Alb 2.7 Meds noted: Humalog, Senokot, Colace, Protonix -Encourage PO intake and honor food preferences within diet restrictions. -Will send Glucerna with lunch today for pt trial. -Monitor wt. -RD following.
[2019-12-02] VITALS (24 sets, daily range): BP systolic 126–154; BP diastolic 52–108
[2019-12-02 05:55] LABS: HEMATOCRIT 27.6 % (42.0-54.0); HEMOGLOBIN 9.4 g/dL (13.5-17.5); MCH 32.2 pg (26.0-34.0); MCHC 34.1 g/dL (31.0-37.0); MCV 94.5 fL (80.0-100.0); RBC 2.92 10x6/uL (4.20-6.10); RDW 13.9 % (11.5-14.5)
[2019-12-02 06:10] LABS: WBC 7.9 10x3/uL (4.8-10.8)
[2019-12-02 06:15] LABS: ALBUMIN 2.3 g/dL (3.4-5.0); ALKALINE PHOSPHATASE 54 U/L (30-120); ALT (SGPT) 34 U/L (10-68); BILIRUBIN - TOTAL 0.67 mg/dL (0.2-1.3); CALCIUM 7.7 mg/dL (8.5-10.1); CARBON DIOXIDE 27.8 mmol/L (21.0-32.0); CHLORIDE - SERUM 104 mmol/L (98-107); PROTEIN - SERUM 5.9 g/dL (6.4-8.2); SODIUM 140 mmol/L (136-145); UREA NITROGEN 9 mg/dL (7-18); eGFR NON AFRICAN AMERICAN 79 mL/min (90-120)
[2019-12-02 06:24] LABS: CALC OSMOLALITY 281 mosm/kg (275-300); GLUCOSE 165 mg/dL (74-106)
[2019-12-02 06:27] LABS: POTASSIUM - SERUM 2.8 mmol/L (3.5-5.1)
--- NOTE | 2019-12-02 07:00 | NUR ---
REPORT RECEIVED FROM HEALTH PROGRAM ANALYST AND PATIENT CARE ASSUMED. PATIENT SITTING UP IN BS CHAIR AWAKE, ALERT AND ORIENTED X 4. VSS. PATIEIT DENIES ANY NEEDS OR PAIN. WILL CONTINUE WITH PLAN OF CARE. CALL LIGHT IN REACH.
--- NOTE | 2019-12-02 09:00 | NUR ---
ASSESSMENT COMPLETED. PATIENT DENIES ANY NEEDS OR PAIN. PATIENT IS BS CHAIR. VSS. CALL LIGHT IN REACH.
--- NOTE | 2019-12-02 09:35 | OP ---
PATIENT NAME: RUBINA SANDERS MEDICAL RECORD: [id number] :50 LOCATION:D.CVI D.CV08 ADMISSION DATE:11/28/19 SURGEON: KWABENA DO MD DATE OF OPERATION: 11/28/2019 SURGEON: Kwabena Do MD PROCEDURES PERFORMED: 1. Coronary artery bypass graft times 4 (left internal mammary to LAD, reverse saphenous vein from aorta to first diagonal, aorta to first obtuse marginal, aorta to posterior descending artery). 2. Endoscopic saphenous vein harvest. PREOPERATIVE DIAGNOSIS: Coronary artery disease. POSTOPERATIVE DIAGNOSIS: Coronary artery disease. ANESTHESIA: General endotracheal anesthesia. ESTIMATED BLOOD LOSS: Total cardiopulmonary bypass with Cell Saver retransfusion. COMPLICATIONS: None. SPECIMENS: None. CONDITION: Stable. DISPOSITION: CV ICU. OPERATIVE FINDINGS: 1. Normal heart with good contractility on transesophageal echocardiography. 2. Good quality greater saphenous vein. The smallest caliber portion used for the PDA graft. 3. LAD 1.5 mm with severe disease. 4. First diagonal 1.5 mm distal vessel intramyocardial. 5. First obtuse marginal 1.25 mm, again distal vessel intramyocardial. 6. Posterior descending artery 1.5 mm with severe disease, anastomosis and plaque. PROCEDURE INDICATION: Coronary artery disease. PROCEDURE IN DETAIL: The patient was brought to the operating suite. General anesthesia was obtained. The patient was prepped and draped. Greater saphenous vein harvested in the right lower extremity utilizing endoscopic technique. Side branches were divided with electrocautery. Vessels ligated proximally and distally and removed. Side branches were clipped or tied and thin sites were oversewn. Leg was irrigated and closed in 2 layers. Mediastinotomy incision was made. Subcutaneous tissue was divided with electrocautery. Sternum was divided with a saw. The left hemisternum was elevated. Left pleural cavity was entered. The left internal mammary artery and vein was taken down as a pedicle graft. Sternal retractor was placed. Pericardium was opened. Heparin was given. The OPERATIVE REPORT [id number] RUBINA SANDERS aorta was cannulated. Dual stage venous cannula was inserted. The internal mammary was clipped distally and made ready for anastomosis. Activated clotting time was appropriately elevated. The patient was placed on cardiopulmonary bypass. Sites for distal anastomosis were selected. Antegrade cardioplegia cannula was inserted. The patient's temperature drifted downwardly. Crossclamp was placed. Cardioplegia given was antegrade. This was repeated at 15 to 20 minute intervals including down the completed vein graft. Distal anastomosis was performed in standard technique. Proximal anastomosis with single cross-clamp technique. Aortic root de-aired by removing the clamp, deairing the root, tying the proximal anastomosis during the vein graft and restoring the flow. Proximal and distal anastomotic sites were inspected for bleeding. Single 6-0 was in the proximals. The patient resumed a spontaneous rhythm, fully rewarmed, weaned from cardiopulmonary bypass and was stable. The patient was decannulated. Aortic cannula site was oversewn with a pledgeted Prolene suture. Protamine was given. Thorough irrigation was undertaken. Hemostasis was ensured. The graft lay appropriately. Left chest was evacuated and irrigated. The internal mammary harvest site was inspected for bleeding. The pericardial fat was loosely reapproximated after placing drains in the mediastinum, one with the tip in the right pleural cavity and one in the left pleural cavity and placing a ventricular pacing wire. The sternum was closed with wires. Fascia was closed. Subcutaneous tissue was closed. Skin was closed. Dermabond was placed. The needle and sponge counts were reported as correct. The patient was taken to ICU in stable condition. TRANSINT:[id number] Voice Confirmation ID: [id number] DOCUMENT ID: [id number] KWABENA DO MD at 0935 CC: ALTAF KAMARA M.D. and VANDA VEGA MD [id number] DICTATION DATE: 11/28/[address] COUNSELLOR: 11/29/19 0012 ADM IN [facility] [address] [id number]
--- NOTE | 2019-12-02 14:04 | NUR ---
NOTIFIED DR DO OF POTASSIUM OF 2.9. ORDER RECEIVED FOR 20MEQ PO NOW X1.
--- NOTE | 2019-12-02 15:00 | NUR ---
REASSESMENT COMPLETED. NO CHANGES. VSS. PATIENT DENIES ANY NEEDS OR PAIN. CALL LIGHT IN REACH.
--- NOTE | 2019-12-02 15:31 | NUR ---
SPOKE WITH DR BRYANT. NEW ORDER RECEIVED TO DC INSULIN GTT. USE SLIDING SCALE ORDERED.
--- NOTE | 2019-12-02 17:45 | NUR ---
PATIENT COMPLAINS OF PAIN TO LEFT SHOULDER T A 9. MEDICATED PATIENT PER APR KARISHMA HYDROCODONE 10/325 PO. VSS. SLIGHT SEROUS DRAINAGE TO LT CHEST DRSG. NEW BANDAGE APPLIED AND SECURED. WILL CONTINUE TO MONITOR. SR UP X 2 BED IN LOW POSITION AND CALL LIGHT IN REACH.
[2019-12-03] VITALS (23 sets, daily range): BP systolic 125–147; BP diastolic 70–84
[2019-12-03 05:10] LABS: HEMATOCRIT 28.4 % (42.0-54.0); HEMOGLOBIN 9.7 g/dL (13.5-17.5); MCH 32.6 pg (26.0-34.0); MCHC 34.2 g/dL (31.0-37.0); MCV 95.3 fL (80.0-100.0); MEAN PLATELET VOLUME 9.7 fL (7.4-10.4); RBC 2.98 10x6/uL (4.20-6.10); RDW 14.1 % (11.5-14.5); WBC 8.3 10x3/uL (4.8-10.8)
[2019-12-03 05:35] LABS: ALBUMIN 2.4 g/dL (3.4-5.0); BILIRUBIN - TOTAL 0.87 mg/dL (0.2-1.3); CALCIUM 7.7 mg/dL (8.5-10.1); CARBON DIOXIDE 30.7 mmol/L (21.0-32.0); CREATININE - SERUM 1.1 mg/dL (0.6-1.3); POTASSIUM - SERUM 3.7 mmol/L (3.5-5.1); PROTEIN - SERUM 6.3 g/dL (6.4-8.2)
--- NOTE | 2019-12-03 09:20 | NUR ---
Ambulated with physical therapy in unit. Tolerated well. O2 decreased to 5L at this time. Will continue to wean O2 as tolerated.
--- NOTE | 2019-12-03 10:21 | NUR ---
O2 sat 97% at 5L. O2 decreased to 3L at this time. Will continue to monitor.
--- NOTE | 2019-12-03 12:42 | NUR ---
Nutrition Follow-up: POD 5 CABG. Pt reports that he has been eating fairly well. Denies N/V. -BM; +flatus. Diet: Diabetic Wt: 188# (12/02) Labs noted: Glu 174, Ca 7.7, Alb 2.4 Meds noted: Senokot, Colace, Protonix, KDur, Glucophage, Glucotrol, Humalog -RD following.
--- NOTE | 2019-12-03 13:42 | NUR ---
Bath set up. Pt bathed self with assistance from his spouse. Clean gown provided. Currently on 2L O2 via nc. No further needs at this time. Will continue to monitor.
--- NOTE | 2019-12-03 18:08 | NUR ---
Rocael drain and TPM wires removed at this time by Dr. Jung. Pt resting in bed. Reports BM this evening.
--- NOTE | 2019-12-03 21:01 | MORECARE ---
CASE MANAGEMENT DISCHARGE SUMMARY PATIENT: RUBINA SANDERS UNIT: [id number] ADM DATE: 11/28/19 AGE: 69 : 50 SEX: M ROOM/BED: [facility] AUTHOR: OUMAR WISEMAN PHYSICIAN: REFERRING PHYSICIAN: ZOILA DO MD DATE OF SERVICE: 12/03/19 Discharge Plan Patient Name: RUBINA SANDERS [facility] [facility] 1950 Planned Disposition: Anticipated Discharge Date: Discharge Date: Expected LOS: Initial Reviewer: [email or web address] Initial Review Date: 11/28/2019 Generated: 12/03/19 10:01 pm DCPIA - Discharge Planning Initial Assessment Updated by [email or web address]: Sharon Barfield on 12/03/19 8:59 pm * Is the patient Alert and Oriented? Yes * How many steps to enter\exit or inside your home? * PCP IBRAHIMA * Pharmacy [facility] * Preadmission Environment Home with Family * ADLs Independent * Equipment None * List name and contact numbers for known caregivers / representatives who currently or will assist patient after discharge: ELVIA SANDERS - - [phone] * Verbal permission to speak to the caregivers and representatives has been obtained from the patient. Yes * Community resources currently utilized None * Additional services required to return to the preadmission environment? No * Can the patient safely return to the preadmission environment? Yes * Has this patient been hospitalized within the prior 30 days at any hospital? No Patient Name: RUBINA SANDERS Page [id number] at 2101 All edits/amendments must be made on the electronic document DICTATION DATE: 12/03/192100 DOUBLE BOTTOM DRIVER: MAYELIN 12/03/192100 RPT#: [id number] DC DATE: STATUS: ADM IN [facility] [address] [place] [address] END OF REPORT
--- NOTE | 2019-12-03 21:08 | MORECARE ---
CASE MANAGEMENT DISCHARGE SUMMARY PATIENT: RUBINA SANDERS UNIT: [id number] ADM DATE: 11/28/19 AGE: 69 : 50 SEX: M ROOM/BED: D[facility] AUTHOR: IVONE,DOC PHYSICIAN: REFERRING PHYSICIAN: ZOILA DO MD DATE OF SERVICE: 12/03/19 Discharge Plan Patient Name: RUBINA SANDERS Facility: [facility]:[place] : 1950 Planned Disposition: Anticipated Discharge Date: Discharge Date: Expected LOS: Initial Reviewer: [email or web address] Initial Review Date: 11/28/2019 Generated: 12/03/19 10:07 pm Comments DCP- Discharge Planning Updated by [email or web address]: Sharon Barfield on 12/03/19 8:[address] Patient Name: RUBINA SANDERS Admission Status: Elective Accout number: [id number] Admission Date: 11-28-2019 : 1950 Admission Diagnosis:CORONARY ATHEROSCLEROSIS DUE TO CALCIFIED CORONARY LESI Attending: ZOILA DO Current LOS: 5 Anticipated DC Date: Planned Disposition: Primary Insurance: [facility] MEDICARE SOLUTIONS Discharge Planning Comments: CM met with patient to complete initial dc planning assessment. CM educated patient on the CM role and verbal consent given by patient to complete assessment. Patient lives at home with family. Patient is independent. At discharge patient plans to return home and feels this is a safe discharge. CM discussed availability of home health, rehab services, and medical equipment. Patient may need walk test for home 02 [place] [facility] [place] [facility] if in network with insurance. Patient will have family to transport home. Patient denied known discharge needs at this time. CM will continue to follow and will assist as needed with dc plans/needs Book Trimmer: Sharon Barfield DCPIA - Discharge Planning Initial Assessment Updated by [id number]: Sharon Barfield on 12/03/19 8:59 pm * Is the patient Alert and Oriented? Yes * How many steps to enter\exit or inside your home? * PCP IBRAHIMA * Pharmacy [facility] * Preadmission Environment Home with Family * ADLs Independent * Equipment None * List name and contact numbers for known caregivers / representatives who currently or will assist patient after discharge: ELVIA Solares - [phone] * Verbal permission to speak to the caregivers and representatives has been obtained from the patient. Yes * Community resources currently utilized None * Additional services required to return to the preadmission environment? No * Can the patient safely return to the preadmission environment? Yes * Has this patient been hospitalized within the prior 30 days at any hospital? No Last DP export: 12/03/19 8:01 Patient Name: RUBINA SANDERS Page [id number] at 2108 All edits/amendments must be made on the electronic document DICTATION DATE: 12/03/192106 ARMATURE COIL WINDER: MAYELIN 12/03/192106 RPT#: [id number] DC DATE: STATUS: ADM IN [facility] [address] [place] [address] END OF REPORT
[2019-12-04] VITALS (10 sets, daily range): BP systolic 141–154; BP diastolic 66–98
[2019-12-04 05:17] LABS: BASOPHILS 0.1 % (0-2); EOSINOPHILS 3.1 % (0-7); HEMATOCRIT 30.9 % (42.0-54.0); HEMOGLOBIN 10.4 g/dL (13.5-17.5); IMMATURE GRANULOCYTES 0.8 % (0-5); MCH 32.8 pg (26.0-34.0); MCHC 33.7 g/dL (31.0-37.0); MEAN PLATELET VOLUME 10.9 fL (7.4-10.4); MONOCYTES 10.1 % (2-11); NEUTROPHILS 61.9 % (40-80); PLATELET COUNT 283 10x3/uL (130-400); RBC 3.17 10x6/uL (4.20-6.10); RDW 14.5 % (11.5-14.5); WBC 8.6 10x3/uL (4.8-10.8)
[2019-12-04 05:29] LABS: MCV 97.5 fL (80.0-100.0)
[2019-12-04 05:41] LABS: ALBUMIN 2.8 g/dL (3.4-5.0); ALKALINE PHOSPHATASE 64 U/L (30-120); ALT (SGPT) 42 U/L (10-68); BILIRUBIN - TOTAL 0.74 mg/dL (0.2-1.3); CALC OSMOLALITY 283 mosm/kg (275-300); CALCIUM 8.3 mg/dL (8.5-10.1); CARBON DIOXIDE 27.5 mmol/L (21.0-32.0); CHLORIDE - SERUM 104 mmol/L (98-107); GLUCOSE 168 mg/dL (74-106); PROTEIN - SERUM 6.3 g/dL (6.4-8.2); SODIUM 141 mmol/L (136-145); UREA NITROGEN 11 mg/dL (7-18); eGFR NON AFRICAN AMERICAN 79 mL/min (90-120)
[2019-12-04 05:45] LABS: POTASSIUM - SERUM 4.6 mmol/L (3.5-5.1)
[2019-12-04] MEDS ORDERED: AMIODARONE HCL200 MG PO (08:34)
--- NOTE | 2019-12-04 08:37 | NUR ---
AM meds given. Ambulated in unit without O2. Tolerated well. O2 sat remained above 92%.
[2019-12-04] MEDS ORDERED: PERCOCET 5-3251 TAB PO (08:39)
[2019-12-04] MEDS ORDERED: COZAAR50 MG PO (08:42)
[2019-12-04] MEDS ORDERED: TOPROL XL25 MG PO (08:43)
--- NOTE | 2019-12-04 10:25 | NUR ---
Left wrist PIV dc'd at this time. Pt will be discharged home.
--- NOTE | 2019-12-04 11:02 | NUR ---
Discharge instructions reviewed with patient and spouse. Personal belongings sent with patiet. Wheeled out to personal vehicle.
--- NOTE | 2019-12-04 14:26 | MORECARE ---
CASE MANAGEMENT DISCHARGE SUMMARY PATIENT: RUBINA SANDERS UNIT: [id number] ADM DATE: 11/28/19 AGE: 69 : 50 SEX: M ROOM/BED: D[facility] AUTHOR: IVONE,DOC PHYSICIAN: REFERRING PHYSICIAN: ZOILA DO MD DATE OF SERVICE: 12/04/19 Discharge Plan Patient Name: RUBINA SANDERS Facility: [facility]:[place] : 1950 Planned Disposition: Anticipated Discharge Date: Discharge Date: 12/04/2019 Expected LOS: Initial Reviewer: [email or web address] Initial Review Date: 11/28/2019 Generated: 12/04/19 3:25 pm Comments DCP- Discharge Planning Updated by [email or web address]: Sharon Barfield on 12/04/19 1:[address] Patient Name: RUBINA SANDERS Encounter No: [id number] : 1950 Primary Insurance: [employer] MEDICARE SOLUTIONS Anticipated DC Date: Planned Disposition: External Planned Provider: : Russ/Simran IMM SIGNED 12/04/19 @ 0920 DCP follow-up note: Patient and family in agreement with discharge plan. No changes to plan. Case management will follow and assist as needed. Sharon Barfield DCP- Discharge Planning Updated by [email or web address]: Sharon Barfield on 12/03/19 8:[address] Patient Name: RUBINA SANDERS Admission Status: Elective Accout number: [id number] Admission Date: 11-28-2019 : 1950 Admission Diagnosis:CORONARY ATHEROSCLEROSIS DUE TO CALCIFIED CORONARY LESI Attending: ZOILA DO Current LOS: 5 Anticipated DC Date: Planned Disposition: Primary Insurance: [employer] MEDICARE SOLUTIONS Discharge Planning Comments: CM met with patient to complete initial dc planning assessment. CM educated patient on the CM role and verbal consent given by patient to complete assessment. Patient lives at home with family. Patient is independent. At discharge patient plans to return home and feels this is a safe discharge. CM discussed availability of home health, rehab services, and medical equipment. Patient may need walk test for home 02 - if needed [facility] [place] [facility] in [facility] if in network with insurance. Patient will have family to transport home. Patient denied known discharge needs at this time. CM will continue to follow and will assist as needed with dc plans/needs Coffee Bar Attendant: Sharon Barfield DCPIA - Discharge Planning Initial Assessment Updated by [email or web address]: Sharon Barfield on 12/03/19 8:59 pm * Is the patient Alert and Oriented? Yes * How many steps to enter\exit or inside your home? * PCP IBRAHIMA * Pharmacy [facility] * Preadmission Environment Home with Family * ADLs Independent * Equipment None * List name and contact numbers for known caregivers / representatives who currently or will assist patient after discharge: ELVIA SANDERS - - [phone] * Verbal permission to speak to the caregivers and representatives has been obtained from the patient. Yes * Community resources currently utilized None * Additional services required to return to the preadmission environment? No * Can the patient safely return to the preadmission environment? Yes * Has this patient been hospitalized within the prior 30 days at any hospital? No Coverage Notice Reviewer: [id number] - Sharon Barfield Notice Issued Date-Time: 12/04/2019 9:20 Notice Type: IM Discharge Notice Notice Delivered To: Patient Relationship to Patient: Self Creel Clerk Name: Delivery Method: HAND - Hand Delivered Debra Days: Prior Verbal Notification: Recipient Understood Notice: Yes Recipient Signature: Yes Med Rec Note Co-signed by Attending: Coverage Notice Comment: Last DP export: 12/03/19 8:08 Patient Name: RUBINA SANDERS Page 25587 at 1426 All edits/amendments must be made on the electronic document DICTATION DATE: 12/04/191424 RAILWAY SWITCHMAN: MAYELIN 12/04/19 142 RPT#: [id number] DC DATE:12/04/19 STATUS: DIS IN [facility] [address] [place] [address] END OF REPORT
--- NOTE | 2019-12-05 08:42 | TEE ---
PATIENT:RUBINA SANDERS MEDICAL RECORD: [id number] LOCATION:[place] [address] AGE OF PATIENT: 69 ADMISSION DATE: 11/28/19 SEX: M REFERRING PHYSICIAN: INTERPRETING PHYSICIAN: ABEL REYNOLDS MD TRANSESOPHAGEAL ECHOCARDIOGRAM Date: 11/28/19 ELLEN CHARGE Y INDICATIONS: CABG PREMEDICATIONS: PATIENT'S RESPONSE PROCEDURE DOPPLER MEASUREMENTS: LVIT LA PA RA LVOT RVOT Asc. Ao AV Gradient Peak AV Mean AV Area MV Gradient Peak MV Mean MV Area INTERPRETATION: Doppler: 2-D: COLOR FLOW DOPPLER NORMAL SALINE STUDY: MISCELLANOUS: DIAGNOSIS: PLAN: Drawer In Jacquard Loom:3 Dr. Haynes Glue Mounter Operator: Sarah DOE COMMENTS: DATE OF SERVICE: 12/04/2019 PROCEDURE: Intraoperative ELLEN. Preoperative shows normal LV wall motion, wall thickening, EF greater than 55%. Aortic valve is tricuspid with good valve excursion. Left atrium appears normal. Mitral valve appears normal. Trace MR. Postoperatively, continued good wall motion in all segments, normal LV function, EF 55%. Aortic valve is tricuspid with good valve excursion. Left atrium appears normal. Mitral valve TRANSESOPHAGEAL ECHOCARDIOGRAM REPORT [id number] RUBINA SANDERS appears normal. Trivial MR. NTS:[id number] Voice Confirmation ID: [id number] DOCUMENT ID: [id number] at 0842 CC: [id number] DICTATION DATE: 12/04/19 1601 ACTIVITIES COUNSELOR: 12/04/192004 DIS IN 12/04/19 [facility] [address] [place] [address]
== END 2019-12-04 11:03 | disposition home or self-care (01) | DRG 236 ==
LOC: D.SDCHOLD 11-28 05:10 → D.CVICU 11-28 05:10 → D.SDCHOLD 11-28 07:30 → D.CVICU 11-28 14:08
PROVIDERS: Internal Medicine Cardiovascular Disease; ADMIT Thoracic Surgery (Cardiothoracic Vascular Surgery); ATTEND Thoracic Surgery (Cardiothoracic Vascular Surgery)
PROC: 021209W Bypass Coronary Artery, Three Arteries from Aorta with Autologous Venous Tissue, Open Approach (ICD-10-PCS; 2019-11-28)
PROC: 06BP4ZZ Excision of Right Saphenous Vein, Percutaneous Endoscopic Approach (ICD-10-PCS; 2019-11-28)
PROC: 0210099 Bypass Coronary Artery, One Artery from Left Internal Mammary with Autologous Venous Tissue, Open Approach (ICD-10-PCS; principal; 2019-11-28 07:30)
DX: I25.84 Coronary atherosclerosis due to calcified coronary lesion (principal); I25.810 Atherosclerosis of coronary artery bypass graft(s) without angina pectoris; D62 Acute posthemorrhagic anemia; I10 Essential (primary) hypertension; K21.9 Gastro-esophageal reflux disease without esophagitis; Z79.84 Long term (current) use of oral hypoglycemic drugs; Z87.891 Personal history of nicotine dependence; E11.65 Type 2 diabetes mellitus with hyperglycemia; E66.9 Obesity, unspecified; Z68.33 Body mass index [BMI] 33.0-33.9, adult; I48.91 Unspecified atrial fibrillation; M19.90 Unspecified osteoarthritis, unspecified site; M77.9 Enthesopathy, unspecified; K57.90 Diverticulosis of intestine, part unspecified, without perforation or abscess without bleeding